=== PATIENT | female | born 1945 | race Caucasian/White ===

== ENCOUNTER 2022-01-26 13:51 | Observation (INO) | payer MEDICARE, SELFPAY ==
[2022-01-26] VITALS (7 sets, daily range): BP systolic 116–170; BP diastolic 59–87; PULSE 66–81; RESP 12–20; TEMP 36.3–37.4; O2SAT 90–100
--- NOTE | ~2022-01-26 | XR_ITS ---
EXAMINATION: XR thoracic spine 3V DATE: 01/26/2022 14:42 INDICATION: Back pain. TECHNIQUE: 3 views of thoracic spine were obtained. COMPARISON: Chest 2 views 11/29/2012 FINDINGS: There is 14 degrees dextroscoliosis of thoracic spine. There is kyphosis of thoracic spine. Vertebral body heights are normal. There is mild to moderately decreased disc height at most levels. There are endplate osteophytes at all levels. There are changes of anterior fusion procedure in cerv ical spine. IMPRESSION: 1. Moderate thoracic spondylosis. 2. Thoracic dextroscoliosis and kyphosis. Reviewed, dictated and finalized at location A. LES ASSEMBLER
--- NOTE | ~2022-01-26 | CT_ITS ---
EXAMINATION: CTA chest abdomen pelvis DATE: 01/26/2022 15:34 INDICATION: Epigastric abdominal pain. Syncope. Aortic aneurysm. TECHNIQUE: Computed tomography (CT) of the chest, abdomen, and pelvis was performed with 100 CC Omnip aque 350 intravenous contrast. Automated exposure control and iterative reconstruction technique were employed. Exam dose: 421.15 mGy-cm total exam DLP. COMPARISON: 01/26/2022 portable AP chest 08/07/2016 CT abdomen pelvis FINDINGS: CHEST CT: There is discoid atelectasis and/or scarring at the middle lobe and lingula and mild infiltrate or at electasis in the lower lobes. Moderately prominent emphysematous changes of the lungs. There is old pulmonary granulomatous disease. Normal heart size. Mitral annulus calcification. There is some calcification of the aortic valve. The re is coronary artery calcification. Is aortic and great vessel calcification. No thoracic aortic ane urysm or dissection is detected. No hilar or mediastinal mass lesion or lymphadenopathy. ABDOMEN/PELVIS CT: There is diffuse hepatic steatosis. No hepatic space-occupying mass lesion is evident. Status post ch olecystectomy. No bile duct or unusual dilatation is suggested. No pancreatic mass lesion or calcific ation or pancreatic duct dilatation is noted. Adrenal glands are unremarkable. No renal mass lesion or urinary tract calculus or hydroureteronephrosis. There is a saccular abdominal aortic aneurysm measuring up to 5.2 cm length, up to [address], without evidence of aortic rupture. There is extensive calcification of the abdominal aorta and iliac arteries as well as some femoral ar denis calcification. No intraperitoneal or retroperitoneal or pelvic mass lesion or adenopathy or ascites. No evidence of appendicitis. No bowel obstruction. There is diverticulosis of the colon, primarily in the sigmoid and descending colon; no evidence of diverticulitis. The urinary bladder is unremarkable. Uterus is likely surgically absent. Status post anterior cervical spine surgical fusion. Severe osteoarthritic change at the glenohumeral joints. Bilateral hip osteoarthritis. No recent fracture or bone destruction or suspicious osteolytic or osteoblastic lesions are noted. Prominent degenerative changes apophyseal joints with associated grade 1 anterolisthesis at L5-S1. Moderate degenerative disc disease with mild retrolisthesis at L1-2, L2-3. IMPRESSION: Discoid atelectasis and/or scarring at the middle lobe and lingula and mild infiltrate o r atelectasis in the lower lobes Emphysema Old pulmonary granulomatous disease Aortic valve calcification Extensive atherosclerotic calcification of thoracic aorta, abdominal aorta, iliac arteries 4 cm diameter saccular infrarenal abdominal aortic aneurysm Diverticulosis of left colon; no evidence of diverticulitis Reviewed, dictated and finalized at Location A. Reviewed, dictated and finalized at location A. ER TRAWL LINE IMPRESSION: Discoid atelectasis and/or scarring at the middle lobe and lingula and mild infiltrate or atelectasis in the lower lobes Emphysema Old pulmonary granulomatous disease Aortic valve calcification Extensive atherosclerotic calcification of thoracic aorta, abdominal aorta, gerri ac arteries 4 cm diameter saccular infrarenal abdominal aortic aneurysm Diverticulosis of left colon; no evidence of diverticulitis
--- NOTE | ~2022-01-26 | XR_ITS ---
EXAMINATION: XR lumbar spine 2-3V DATE: 01/26/2022 14:42 INDICATION: Back pain. TECHNIQUE: 3 views of lumbar spine were obtained. COMPARISON: CT abdomen and pelvis 08/07/2016 FINDINGS: There is 3 mm retrolisthesis of L1 on L2 and L2 on L3 and 5 mm anterolisthesis of L5 on S1. Vertebral body heights are normal. There is moderately decreased disc height at L1-L2 and mildly dec reased disc height at L2-L3 and L5-S1. There is multilevel facet joint osteoarthritis, severe at mult iple levels. Surgical clips in the right upper quadrant are likely from cholecystectomy. There is an abdominal aortic aneurysm measuring greater than 4 cm based on the calcification pattern. IMPRESSION: 1. Worsened abdominal aortic aneurysm. CTA of the abdomen and pelvis is recommended. 2. Moderate lumbar spondylosis. Reviewed, dictated and finalized at location A. K CLEANER IMPRESSION: 1. Worsened abdominal aortic aneurysm. CTA of the abdomen and pelvis is recomme nded. 2. Moderate lumbar spondylosis.
--- NOTE | ~2022-01-26 | XR_ITS ---
XR chest 1V portable DATE: 01/26/2022 14:27 INDICATION: Syncope TECHNIQUE: Portable upright AP chest on 01/26/2022 at 1425 hours COMPARISON: 08/07/2016 portable AP chest at 1620 hours FINDINGS: There are bilateral lower lung patchy infiltrates. Moderate bilateral hyperinflation. No pleural effusion or pulmonary vascular congestion or pneumothorax. Heart size is within normal range. Is aortic calcification. Diffuse osteopenia. Status post anterior surgical cervical spine fusion IMPRESSION: Patchy bilateral lower lung infiltrates; diffusion diagnosis includes bilateral pneumonia versus aspiration pneumonitis Reviewed, dictated and finalized at location A. O REGULATOR INSPECTOR IMPRESSION: Patchy bilateral lower lung infiltrates; diffusion diagnosis includ es bilateral pneumonia versus aspiration pneumonitis
--- NOTE | ~2022-01-26 | US_ITS ---
US venous doppler [facility] DATE: 01/26/2022 21:57 INDICATION: Elevated d-dimer TECHNIQUE: Real-time and color flow imaging and Doppler analysis of the deep veins of both lower extr emities COMPARISON: None FINDINGS: There is complete thrombosis of the left peroneal veins. Otherwise there is spontaneous and phasic flow, normal augmentation and color flow signal and normal compression of the deep veins of both lower extremities. The greater saphenous veins are patent bilaterally. IMPRESSION: Deep venous thrombosis of the left peroneal veins Reviewed, dictated and finalized at Location A. Reviewed, dictated and finalized at location A. R AUTOMATIC
--- NOTE | ~2022-01-26 | US_ITS ---
EXAMINATION: US carotid duplex BI DATE: 01/26/2022 21:57 INDICATION: Syncopal episode TECHNIQUE: Grayscale, color Doppler, and pulsed Doppler images of the cervical carotid arteries were obtained. The degree of vessel stenosis is placed in one of the following categories: normal, <50%, 5 0-69%, >=70% but less than near-occlusion, near-occlusion, or total occlusion. Note that percent sten osis relative to normal distal artery lumen diameter is indirectly measured from velocity measurement s as described by Chris, et al. Radiology 2003; 229:340-346. COMPARISON: 01/26/2022 CT brain FINDINGS: RIGHT: The right common carotid artery (CCA) peak systolic velocity (PSV) is 87.4 cm/s. The right internal c arotid artery (ICA) PSV is 90.7 cm/s. The right ICA end-diastolic velocity (EDV) is 24.8 cm/s. The ri ght ICA/CCA PSV ratio is 1.0. Grayscale and color Doppler images yield an estimate of less than 50% d iameter reduction from plaque in the ICA. The external carotid artery (ECA) PSV is 80.8 cm/s. There i s antegrade flow in the right vertebral artery. LEFT: The left CCA PSV is 70.3 cm/s. The left ICA PSV is 64.2 cm/s. The left ICA EDV is 18.0 cm/s. The left ICA/CCA PSV ratio is 0.9. Grayscale and color Doppler images yield an estimate of less than 50% diam eter reduction from plaque in the ICA. The ECA PSV is 140.4 cm/s. There is antegrade flow in the left vertebral artery. IMPRESSION: 1. Less than 50% stenosis in the right internal carotid artery. 2. Less than 50% stenosis in the left internal carotid artery. Reviewed, dictated and finalized at Location A. Reviewed, dictated and finalized at location A. RDER HELPER SEISMOGRAPH
--- NOTE | ~2022-01-26 | CT_ITS ---
EXAMINATION: CT brain wo con DATE: 01/26/2022 14:36 INDICATION: Syncopal episode. Generalized weakness. TECHNIQUE: Computed tomography (CT) of the head was performed without intravenous contrast. The mA wa s adjusted according to patient size. Iterative reconstruction technique was employed. Exam dose: 60 5.33 mGy-cm total exam DLP. COMPARISON: 01/02/2009 CT brain FINDINGS: There are prominent bilateral carotid siphon and supraclinoid internal carotid artery calci fications the right anterior middle cerebral artery as well as basilar and right vertebral artery edilia cifications are noted. There is nonspecific diminished attenuation of the cerebral white matter, likely due to chronic small vessel ischemic changes. No intracranial mass lesion or hemorrhage or cerebrovascular accident is detected. No midline shift o r mass effect. No subdural or epidural hematoma. No fracture or bone destruction of the cranial vault. Included paranasal sinuses and the mastoid air cells are unremarkable. IMPRESSION: Cerebral atherosclerosis and chronic small vessel ischemic changes of the cerebral white matter No acute intracranial finding Reviewed, dictated and finalized at Location A. Reviewed, dictated and finalized at location A. IFIED GENETIC COUNSELOR
[2022-01-26 13:59] LABS: Glucose Point of Care 132 mg/dl (65-105)
--- NOTE | 2022-01-26 14:04 | ECG_ITS ---
Measurements Intervals [place] Rate: 67 P: -4 ND: 176 QRS: 12 QRSD: 133 T: 27 QT: 408 QTc: 431 Interpretive Statements SINUS RHYTHM INTRAVENTRICULAR CONDUCTION DELAY [130+ ms QRS DURATION] NO PREVIOUS ECG AVAILABLE FOR COMPARISON Electronically Signed On 01-26-2022 15:36:[address] MAINTENANCE SUPERVISOR by Arlene Arredondo M.D.
--- NOTE | 2022-01-26 14:20 | ED.SYNCOPE ---
HPI - Syncope General Chief Complaint: Syncope <Margarita Cantu PA-C - Last Filed: 01/26/22 17:38> Stated Complaint: not feeling well <JOHNATHAN Cummings Last Filed: 01/26/22 17:38> Time Seen by Provider: 01/26/22 14:00 <Margarita Cantu PA-C - Last Filed: 01/26/22 17:38> Source: patient and family <JOHNATHAN Cummings Last Filed: 01/26/22 17:38> Mode of arrival: EMS <JOHNATHAN Cummings Last Filed: 01/26/22 17:38> Limitations: no limitations <JOHNATHAN Cummings Last Filed: 01/26/22 17:38> History of Present Illness HPI narrative: This is a 76 year old female that presents to the ER for syncopal episode today. Family report she has been having a lot of pain in her back and shoulders the last couple of days due to her arthritis. No recent injuries or falls. Report she was seated today and looked like she was gasping for air. She passed out. They caught her before falling to the floor. They were able to arouse her via sternal rub. She is now alert and oriented. She reports feeling dizzy before passing out. Reports when she came back to she vomited. Reports some epigastric pain currently. She does have a productive cough. Has history of COPD. Is still a smoker. Does not usually use oxygen. Denies fever, chest pain, shortness of breath, dysuria, or lower extremity edema. <Margarita Cantu PA-C - Last Filed: 01/26/22 17:38> Related Data Allergies/Adverse Reactions: Allergies Allergy/AdvReac Type Severity Reaction Status Date / Time diclofenac AdvReac Unknown GI upset Verified 04/14/21 12:04 levofloxacin [From Levaquin] AdvReac Unknown nausea, Verified 04/14/21 12:04 mouth sores codeine AdvReac Nausea and Verified 01/26/22 14:11 Vomiting <JOHNATHAN Cummings Last Filed: 01/26/22 17:38> Review of Systems Review of Systems: CONSTITUTIONAL: Denies fever EYES: Denies redness, or discharge. ENT: Denies rhinorrhea, congestion, sore throat CARDIOVASCULAR: Denies chest pain, palpitations, or edema. RESPIRATORY: Reports cough. Denies dyspnea. GASTROINTESTINAL: Reports abdominal pain, nausea, vomiting GENITOURINARY: Denies dysuria or hematuria. MUSCULOSKELETAL: Reports back pain, joint pain, and myalgia. NEUROLOGIC: Reports generalized weakness. PSYCHIATRIC: Denies anxiety or depression. <Margarita Cantu PA-C - Last Filed: 01/26/22 17:38> All systems reviewed & are unremarkable except as noted in HPI and below <Margarita Cantu PA-C - Last Filed: 01/26/22 17:38> [facility] Past Medical History Medical History: Medical History Abnormal colonoscopy 07/24 Polyp Chronic obstructive pulmonary disease, unspecified Gastro-esophageal reflux disease without esophagitis Mixed hyperlipidemia Nicotine dependence, cigarettes, with other nicotine-induced disorders Other chronic pain Paroxysmal atrial fibrillation Type 2 diabetes mellitus without complications <Margarita Cantu PA-C - Last Filed: 01/26/22 17:38> Surgical History Surgical History: Surgical History H/O cervical discectomy (~1997) History of hysterectomy (~1972) Hx of cholecystectomy (~1989) Hx of tonsillectomy (~1948) <Margarita Cantu PA-C - Last Filed: 01/26/22 17:38> Family History Family History: Family History Mother Breast cancer Sibling Breast cancer Heart disease Grandparent Carcinoma of colon Other Colon polyp Diabetes mellitus <Margarita Cantu PA-C - Last Filed: 01/26/22 17:38> Social History Social History: Social History (Updated 01/26/22 @ 16:53 by Kelsie Lau NP) Social History: 1ppd. family lives with diabled Smoking status: Current every day smoker Tobacco type: cigarettes Second hand tobacco smoke exposure: Yes Alcohol intake: never Substance use: never Subs
--- NOTE | 2022-01-26 14:26 | ED.SYNCOPE ---
HPI - Syncope General Chief Complaint: Syncope Stated Complaint: not feeling well Time Seen by Provider: 01/26/22 14:00 Source: patient and family Mode of arrival: EMS Limitations: no limitations Related Data Allergies Allergy/AdvReac Type Severity Reaction Status Date / Time diclofenac AdvReac Unknown GI upset Verified 04/14/21 12:04 levofloxacin [From Levaquin] AdvReac Unknown nausea, Verified 04/14/21 12:04 mouth sores codeine AdvReac Nausea and Verified 01/26/22 14:11 Vomiting PMFSH Past Medical History Medical History (Updated 01/26/22 @ 14:35 by Margarita Cantu PA-C) Abnormal colonoscopy 07/24 Polyp Chronic obstructive pulmonary disease, unspecified Gastro-esophageal reflux disease without esophagitis Mixed hyperlipidemia Nicotine dependence, cigarettes, with other nicotine-induced disorders Other chronic pain Paroxysmal atrial fibrillation Type 2 diabetes mellitus without complications Surgical History Surgical History (Updated 04/14/21 @ 12:02 by Luzma Dan) H/O cervical discectomy (~1997) History of hysterectomy (~1972) Hx of cholecystectomy (~1989) Hx of tonsillectomy (~1948) Family History Family History (Updated 04/16/21 @ 10:03 by Yajaira Smith MA) Mother Breast cancer Sibling Breast cancer Heart disease Grandparent Carcinoma of colon Other Colon polyp Diabetes mellitus Social History Social History (Updated 04/16/21 @ 10:04 by Yajaira Smith MA) Smoking status: Current every day smoker Tobacco type: cigarettes Second hand tobacco smoke exposure: Yes Alcohol intake: never Substance use: never Substance use type: does not use Gender identity (if verbalized by the patient): Female Sexual Orientation (if Verbalized by the Patient): Straight or Heterosexual Spiritual care concerns: No Agree to blood products: Yes Course Vital Signs Vital signs: Vital Signs Temperature 36.3 C L 01/26/22 13:52 Pulse Rate 66 01/26/22 13:52 Respiratory Rate 12 01/26/22 13:52 Blood Pressure 128/59 L 01/26/22 13:52 Pulse Oximetry 97 01/26/22 13:52 Oxygen Delivery Room Air 01/26/22 13:52 Temperature 36.3 C L 01/26/22 13:52 Pulse Rate 67 01/26/22 14:01 Respiratory Rate 12 01/26/22 13:52 Blood Pressure 128/59 L 01/26/22 13:52 Pulse Oximetry 90 01/26/22 14:01 Oxygen Delivery Room Air 01/26/22 14:01 MDM - Syncope Lab Data 01/26/22 14:19 01/26/22 14:19 Labs: Lab Results 01/26/22 01/26/22 01/26/22 Range/Units 13:57 14:19 14:19 WBC 4.9 (4.5-10.0) K/mm3 RBC 4.79 (4.2-5.4) M/mm3 Hgb 15.3 H (12.0-15.0) g/dL Hct 45.3 (37.0-47.0) % MCV 94.6 (80-100) fl MCH 31.9 (26-34) pg MCHC 33.8 (32-36) g/dl RDW 13.2 (11.5-14.5) % Plt Count 194 (150-375) k/mm3 MPV 9.9 (7.4-10.4) fl Immature Gran % (Auto) 0.4 (0-0.5) % Neut % (Auto) 63.3 (45.5-73.1) % Lymph % (Auto) 24.8 (18.3-44.2) % [place] % (Auto) 10.3 H (2.6-8.5) % Eos % (Auto) 0.4 (0-4.4) % Baso % (Auto) 0.8 (0.2-1.2) % Lymph # (Auto) 1.21 (0.9-3.2) K/mm3 [place] # (Auto) 0.5 (0.1-0.6) K/mm3 Eos # (Auto) 0.0 (0-0.3) K/mm3 Baso # (Auto) 0.0 (0.0-0.1) K/mm3 Abs Immat Gran (auto) 0.02 (0.00-0.031) K/mm3 Absolute Neuts (auto) 3.1 (1.3-6.7) K/mm3 Absolute Nucleated RBC 0.0 (0.0-0.012) K/mm3 Nucleated RBC % 0.0 (0.0-0.2) % Sodium Pending Potassium Pending Chloride Pending Carbon Dioxide Pending Anion Gap Pending BUN Pending Creatinine Pending Estim Creat Clear Calc Pending Estimated GFR Pending Glucose Pending POC Capillary Glucose 132 H (65-105) mg/dl Calcium Pending Total Bilirubin Pending AST Pending ALT Pending Alkaline Phosphatase Pending Troponin I Total Protein Pending Albumin Pending Lipase 01/26/22 01/26/22 Rang
[2022-01-26 14:31] LABS: Basophils Percent Auto 0.8 % (0.2-1.2); Eosinophils Percent Auto 0.4 % (0-4.4); Hematocrit 45.3 % (37.0-47.0); Hemoglobin 15.3 g/dL (12.0-15.0); Immature Granulocyte Absolute 0.02 K/mm3 (0.00-0.031); Immature Granulocyte Percent A 0.4 % (0-0.5); Lymphocytes Absolute Auto 1.21 K/mm3 (0.9-3.2); Lymphocytes Percent Auto 24.8 % (18.3-44.2); Mean Corpuscular HGB Conc 33.8 g/dl (32-36); Mean Corpuscular Hemoglobin 31.9 pg (26-34); Mean Corpuscular Volume 94.6 fl (80-100); Mean Platelet Volume 9.9 fl (7.4-10.4); Monocytes Absolute Auto 0.5 K/mm3 (0.1-0.6); Monocytes Percent Auto 10.3 % (2.6-8.5); Neutrophils Absolute Auto 3.1 K/mm3 (1.3-6.7); Neutrophils Percent Auto 63.3 % (45.5-73.1); Platelet Count Result 194 k/mm3 (150-375); Red Blood Count 4.79 M/mm3 (4.2-5.4); Red Cell Distribution Width 13.2 % (11.5-14.5); White Blood Count 4.9 K/mm3 (4.5-10.0)
[2022-01-26 14:44] LABS: Lipase 71 U/L (23-300)
[2022-01-26] MEDS: SODIUM CHLORIDE 0.9% IV 500 ML 999 ML IV CONT ×2 (14:52→18:49)
[2022-01-26] MEDS: PANTOPRAZOLE SODIUM IV 40 MG VIAL IV PUSH (14:52)
[2022-01-26 14:55] LABS: Alanine Aminotransferase 31 U/L (6-35); Albumin Level 3.8 g/dL (3.5-5.1); Alkaline Phosphatase 68 U/L (38-126); Anion Gap 5 mmol/L (8-16); Aspartate Amino Transferase 63 U/L (14-36); Bilirubin,Total 0.3 mg/dL (0.2-1.3); Blood Urea Nitrogen 8 mg/dL (7-17); Calcium 8.3 mg/dL (8.4-10.2); Carbon Dioxide 29 mmol/L (22-30); Chloride 93 mmol/L (98-107); Estimated Glomerular Filt Rate > 60; Glucose 111 mg/dL (65-110); Potassium 3.4 mmol/L (3.4-5.0); Sodium 127 mmol/L (137-145)
[2022-01-26 14:56] LABS: Troponin I < 0.012 ng/mL (0.000-0.034)
[2022-01-26 15:05] LABS: Lactic Acid Reflex 1.2 mmol/L (0.7-2.0)
[2022-01-26 15:08] LABS: Prothrombin Time 13.2 Seconds (11.1-14.7)
[2022-01-26 15:09] LABS: Partial Thromboplastin Time 31.2 SECONDS (22.3-36.8)
[2022-01-26 15:15] LABS: NT Pro B Type Natriuretic Pept 305 pg/mL (5-100)
[2022-01-26 15:27] LABS: Ethanol < 10 mg/dL (<10)
[2022-01-26 15:30] LABS: D Dimer 2.69 ug/mL (<0.48)
[2022-01-26 15:33] LABS: Influenza A QL RT-PCR Negative (Negative); Influenza B QL RT-PCR Negative (Negative); SARS-CoV-2 RNA PCR Positive
[2022-01-26 16:28] LABS: Add Urine Microscopic? YES; Appearance Urine Clear (Clear); Bilirubin Urine Negative (Negative); Blood Urine Trace-Intact (Negative); Color Urine Light Yellow (Yellow); Glucose Urine UA Negative (Negative); Ketones Urine Negative (Negative); Leukocyte Esterase Ur Negative LEU/UL (Negative); Nitrate Urine Negative (Negative); Protein Urine Negative (Negative); Urobilinogen Urine 0.2 mg/dL (<2.0)
[2022-01-26 16:40] LABS: Bacteria Urine Trace /hpf; Mucus Urine Rare /lpf; RBC Urine 0-2 /hpf (0-2); Squamous Epithelial Cell Urine Occasional /hpf (Few); WBC Urine 0-3 /hpf
[2022-01-26 16:46] LABS: Barbiturate Screen Urine Negative (Negative); Benzodiazepines Screen Urine Negative (Negative)
[2022-01-26 16:49] LABS: Cannabinoid Screen Urine Negative (Negative); Cocaine Screen Urine Negative (Negative); Methadone Screen Urine Negative (Negative); Opiate Screen Urine Positive (Negative); Phencyclidine Screen Urine Negative (Negative)
--- NOTE | 2022-01-26 16:51 | PM.IMHP ---
H&P: HPI History of Present Illness Date/Time: 01/26/22 16:51 Chief Complaint: Syncope Narrative: This is a 76-year-old female patient who has not been feeling very well. The patient stated that she has had some vasovagal experience in the past and has had a syncopal episode in the past. Today the patient was having a lot of pain in her back and her shoulders due to the arthritis. She just felt more achy than normal. Today she was seated and looks like she was gasping for air and she passed out. Her family caught her before falling to the ground. She was aroused per sternal rub. She is alert orientated answering questions although she is very hard of hearing. She has a productive cough. She has a history of COPD and she still smokes. She does not use oxygen at home. The patient's oxygen level dropped down 82. She was placed on oxygen at 2 L per nasal cannula. Her D-dimer was elevated to 2.69 sodium 127. The patient was positive for opioids and positive for COVID. Chest abdomen pelvis CTA was read as emphysema old pulmonary granulomatosis disease aortic valve calcification. Extensive aortic sclerotic calcifications of thoracic aorta, abdominal aorta, iliac arteries. 4 cm diameter saccular infrarenal abdominal aortic aneurysm. Diverticulosis of the left colon no evidence of diverticulitis. Patient was started on remdesivir and Decadron. She was also given pantoprazole and IV fluids. The patient is being admitted to observation status on the date of service of 01/26/2022. Review of Systems Review of Systems: All systems reviewed & are unremarkable except as noted in HPI and below Constitutional: Constitutional: Reports as per HPI and Reports no additional constitutional complaints Eyes: Eyes: Reports as per HPI and Reports no additional eye complaints ENT: Reports system reviewed and no additional complaints, except as documented and Reports Normal hearing present Cardiovascular: Cardiovascular: Reports no additional cardiovascular complaints Respiratory: Respiratory: Reports no additional respiratory complaints and Reports no additional respiratory complaints Gastrointestinal: Gastrointestinal: Reports as per HPI and Reports no additional gastrointestinal complaints Musculoskeletal: Musculoskeletal: Reports no additional musculoskeletal complaints Integumentary/Breasts: Skin/Breast: Reports system reviewed and no additional complaints, except as docu and Reports as per HPI Neurologic: Reports system reviewed and no additional complaints, except as documented, Reports as per HPI and Reports Normal hearing present Psychiatric: Psychiatric: Reports no additional psychiatric complaints and Reports as per HPI Endocrine: Endocrine: Reports no additional endocrine complaints Hematologic/Lymphatic: Hematologic/Lymphatic: Reports no additional hematologic/lymphatic complaints Allergic/Immunologic: Allergic/Immunologic: Reports no additional allergic/immunologic complaints [facility] Past Medical History Medical History (Updated 01/26/22 @ 20:37 by Kelsie Lau NP) Abnormal colonoscopy 07/24 Polyp Chronic obstructive pulmonary disease, unspecified DM2 (diabetes mellitus, type 2) Gastro-esophageal reflux disease without esophagitis Hyperlipidemia Mixed hyperlipidemia Nicotine dependence, cigarettes, with other nicotine-induced disorders Other chronic pain Paroxysmal atrial fibrillation Type 2 diabetes mellitus without complications Surgical History Surgical History H/O cervical discectomy (~1997) History of hysterectomy (~1972) Hx of cholecystectomy (~1989) Hx of tonsillectomy (~1948) Family History Family History Mother Breast cancer Sibling Breast cancer Heart disease Grandparent Carcinoma of colon Other Colon polyp Diabetes mellitus Social History Social History (Updated 01/26/22 @ 20:2
[2022-01-26 16:53] LABS: Amphetamine Screen Urine Negative (Negative)
[2022-01-26] MEDS: REMDESIVIR 200 MG/NS 250 ML 200 MG/250 ML BAG 250 MG IVPB (17:47)
--- NOTE | 2022-01-26 19:22 | PC.NURSE ---
Patient report received from ABDON Burns. All questions answered and care of patient assumed.
[2022-01-26 21:38] LABS: Glucose Point of Care 178 mg/dl (65-105)
--- NOTE | 2022-01-26 22:19 | ADMGEN ---
This patient, Remedios Mariscal, was admitted to [facility] Surg Room 301-01 at 2044. Patient/family oriented to hospital policies and general routines including ID bracelet, bed and alarms, visiting hours, pain management, procedures, bathroom and other care routines, personal items, smoking policy, room service/diet, and visiting hours. Information on how to activate the Rapid Response Team has been discussed. Patient/Family are encouraged to report perceived risks to care and to ask questions if they do not understand what they are told or what they should do.
[2022-01-26 22:22] LABS: Hemoglobin A1C 5.7 % (<5.7)
[2022-01-26 22:46] LABS: Anion Gap 5 mmol/L (8-16); Blood Urea Nitrogen 8 mg/dL (7-17); Calcium 8.4 mg/dL (8.4-10.2); Carbon Dioxide 25 mmol/L (22-30); Chloride 104 mmol/L (98-107); Estimated CRCL calculation 61 ml/min; Estimated Glomerular Filt Rate > 60; Glucose 196 mg/dL (65-110); Sodium 134 mmol/L (137-145)
[2022-01-27] VITALS (13 sets, daily range): BP systolic 100–148; BP diastolic 50–71; PULSE 49–80; RESP 16–20; TEMP 35.7–36.6; O2SAT 97–100; BMI 22.5
--- NOTE | 2022-01-27 | ECHO_ITS ---
Patient Info Name: Remedios Mariscal Age: 76 years : 1945 Gender: Female Ht: 62 in Wt: 123 lbs BSA: 1.57 m2 HR: 64 bpm BP: 144 / 54 mmHg Heart Rhythm: Sinus Rhythm Technical Quality: Fair Exam Date: 01/27/2022 2:59 PM Exam Location: [facility] Patient Status: Outpatient Admit Date: 01/26/2022 Staff Ordering Physician: Kelsie Lau NP Pillar Worker: Nerissa Mancilla RDCS Attending Provider: Karel Downs MD Referring Physician: Judi CHAPA; Exam Type: CA echo doppler color flow Study Info Indications - syncopal episode Complete two-dimensional, color flow and Doppler transthoracic echocardiogram is performed. Summary 1. Complete two-dimensional, color flow and Doppler transthoracic echocardiogram is performed. 2. Left ventricular chamber dimension is normal. 3. Left ventricular systolic function is normal, estimated at 65-70%. 4. The left ventricular diastolic function is grade I diastolic dysfunction. 5. E/e' 17 is elevated. 6. There is moderate aortic valve sclerosis. 7. The mitral valve has severely calcified annulus. 8. No pulmonary hypertension, estimated pulmonary arterial systolic pressure is 24 mmHg. Left Ventricle E/e' 17 is elevated. Left ventricular chamber dimension is normal. Left ventricular systolic function is normal, estimated at 65-70%. The left ventricular diastolic function is grade I diastolic dysfunction. Right Ventricle Right ventricular systolic function is normal and with normal TAPSE 2.3 cm. Right ventricular chamber dimension is normal. Left Atria Left atrial chamber dimension is normal. Right Atria Right atrial chamber dimension is normal. Aortic Valve The aortic valve is trileaflet. There is moderate aortic valve sclerosis. There is no aortic valve stenosis. There is no aortic valve regurgitation. Pulmonic Valve There is no pulmonic regurgitation. Mitral Valve The mitral valve has severely calcified annulus. There is no mitral valve stenosis. There is no mitral valve regurgitation. Tricuspid Valve There is no tricuspid valve regurgitation. No pulmonary hypertension, estimated pulmonary arterial systolic pressure is 24 mmHg. Pericardium/Pleural There is no pericardial effusion. Inferior Vena Cava Normal inferior vena cava with >50% collapse upon inspiration consistent with normal right atrial pressure, 5 mmHg. Aorta The aortic root size at the sinus of Valsalva is normal. Left Ventricular Outflow Tract Name Value Normal LVOT 2D LVOT Diameter 2.0 cm LVOT Doppler LVOT Peak Gradient 4 mmHg LVOT Mean Gradient 2 mmHg LVOT VTI 23 cm LVOT VTI/AV VTI Ratio 0.7 LVOT Stroke Volume 68 ml LVOT CO 3.8 l/min LVOT CI 2.4 l/min/m2 Pulmonic Valve Name Value Normal
[2022-01-27 02:55] LABS: Sodium Urine Random 89 meq/L
[2022-01-27 07:18] LABS: Lactic Acid Reflex 0.8 mmol/L (0.7-2.0)
[2022-01-27 07:19] LABS: Alanine Aminotransferase 28 U/L (6-35); Albumin Level 3.5 g/dL (3.5-5.1); Alkaline Phosphatase 62 U/L (38-126); Anion Gap 5 mmol/L (8-16); Aspartate Amino Transferase 41 U/L (14-36); Bilirubin,Total 0.2 mg/dL (0.2-1.3); Blood Urea Nitrogen 10 mg/dL (7-17); Calcium 8.5 mg/dL (8.4-10.2); Carbon Dioxide 26 mmol/L (22-30); Chloride 102 mmol/L (98-107); Estimated CRCL calculation 52 ml/min; Estimated Glomerular Filt Rate > 60; Glucose 118 mg/dL (65-110); Magnesium 1.7 mg/dL (1.6-2.3); Potassium 3.5 mmol/L (3.4-5.0); Sodium 133 mmol/L (137-145)
[2022-01-27 07:22] LABS: Basophils Percent Auto 0.2 % (0.2-1.2); Hematocrit 44.6 % (37.0-47.0); Hemoglobin 15.1 g/dL (12.0-15.0); Immature Granulocyte Absolute 0.01 K/mm3 (0.00-0.031); Immature Granulocyte Percent A 0.2 % (0-0.5); Lymphocytes Absolute Auto 1.27 K/mm3 (0.9-3.2); Lymphocytes Percent Auto 24.2 % (18.3-44.2); Mean Corpuscular HGB Conc 33.9 g/dl (32-36); Mean Corpuscular Hemoglobin 32.1 pg (26-34); Mean Corpuscular Volume 94.7 fl (80-100); Mean Platelet Volume 10.4 fl (7.4-10.4); Monocytes Absolute Auto 0.5 K/mm3 (0.1-0.6); Monocytes Percent Auto 10.1 % (2.6-8.5); Neutrophils Absolute Auto 3.4 K/mm3 (1.3-6.7); Neutrophils Percent Auto 65.3 % (45.5-73.1); Platelet Count Result 208 k/mm3 (150-375); Red Blood Count 4.71 M/mm3 (4.2-5.4); Red Cell Distribution Width 13.2 % (11.5-14.5); White Blood Count 5.3 K/mm3 (4.5-10.0)
[2022-01-27 08:00] LABS: Thyroid Stimulating Hormone Reflex 0.714 uIU/mL (0.465-4.68)
[2022-01-27] MEDS: DIGOXIN 250 MCG TABLET PO (08:43)
[2022-01-27] MEDS: ASPIRIN 81 MG ENTERIC TABLET PO (08:43)
[2022-01-27] MEDS: ATORVASTATIN 20 MG TABLET BY MOUTH (08:43)
[2022-01-27] MEDS: AZITHROMYCIN 250 MG TABLET PO (08:43)
[2022-01-27] MEDS: FENOFIBRATE 160 MG TABLET PO (08:44)
[2022-01-27] MEDS: ENOXAPARIN 40 MG/0.4 ML SYRINGE SUB-Q (08:45)
[2022-01-27 08:55] LABS: Glucose Point of Care 117 mg/dl (65-105)
--- NOTE | 2022-01-27 10:03 | PM.IMPN ---
Progress Note: A&P Assessment and Plan (1) Pneumonia due to COVID-19 virus: Code(s): U07.1 - COVID-19; J12.82 - Pneumonia due to coronavirus disease 2018 Status: Acute Assessment and Plan: -continue with Decadron and remdesivir. -continue with albuterol -Robitussin p.r.n. -contact and droplet isolation 01/27: Does not appear to be improving much, no COPD medications at baseline, pulmonology consultation pending (2) Left leg DVT: Code(s): I82.402 - Acute embolism and thrombosis of unspecified deep veins of left lower extremity Status: Acute Assessment and Plan: Started on Eliquis today, likely secondary to history of smoking as well as COVID positive (3) Syncope: Qualifiers: Syncope type: unspecified Qualified Code(s): R55 - Syncope and collapse Code(s): R55 - Syncope and collapse Status: Acute Assessment and Plan: Appears resolved at this time, monitor For echo showed an EF of 65-70% with grade 1 diastolic dysfunction, moderate aortic valve sclerosis and no pulmonary hypertension noted (4) Hyponatremia: Code(s): E87.1 - Hypo-osmolality and hyponatremia Status: Acute Assessment and Plan: Improving, continue to monitor (5) Aortic aneurysm: Qualifiers: Abdominal aorta location: infrarenal aorta Aortic location: abdominal aorta Presence of rupture: without rupture Qualified Code(s): I71.43 - Infrarenal abdominal aortic aneurysm, without rupture Code(s): I71.9 - Aortic aneurysm of unspecified site, without rupture Status: Acute Assessment and Plan: Follow-up outpatient, stable (6) Type 2 diabetes mellitus without complications: Code(s): E11.9 - Type 2 diabetes mellitus without complications Status: Acute Assessment and Plan: A1c 5.7, continue Accu-Cheks and sliding scale, monitor, controlled (7) Hyperlipidemia: Code(s): E78.5 - Hyperlipidemia, unspecified Status: Acute Assessment and Plan: Continue Lipitor Plan DVT prophylaxis with Eliquis GI prophylaxis not indicated Code status full code Subjective Date/time seen: 01/27/22 10:03 Interval history: No overnight events noted. No chest pain or shortness of breath. No nausea, vomiting or diarrhea. No fevers or chills. Patient states she feels better today than yesterday. She did not know she had a DVT in her left leg. She also is asking about her aneurysm and this is something to be worried about. She was wondering why she needed a blood thinner she was already on aspirin. She states her generalized joint pain seems significantly improved. She states she has significant abdominal distention every night when she lays down in bed seems to resolve by morning. She is requesting to see a GI specialist for this. She is also requesting to get her baclofen and Allen more regularly and her home MiraLax and simethicone q.h.s.. Review of Systems Review of Systems: 12 point review of systems was assessed and was negative except as noted in the HPI Exam Narrative: General: No acute distress, alert and oriented per baseline, stable on 3 L nasal cannula HEENT: Atraumatic, normocephalic, mucous membranes moist CV: Regular rate and rhythm, S1, S2 Lungs: Diminished throughout, scattered fine crackles noted Abdomen: Soft, nontender, nondistended Extremities: Normal to inspection Skin: No rashes noted, no lesions or wounds seen Psych: Euthymic, normal affect Objective Data Vital Signs Vital Signs: Vital Signs - 24 hr 01/26/22 13:52 01/26/22 14:01 01/26/22 14:01 Temperature 97.3 F L Pulse Rate 66 67 Respiratory Rate 12 Blood Pressure 128/59 L Pulse Oximetry 97 90 Oxygen Delivery Room Air Room Air Oxygen Flow Rate 01/26/22 16:27 01/26/22 19:00 01/26/22 19:39 Temperature Pulse Rate 78 73 81 Respiratory Rate 18 20 16 Blood Pressure 116/87 156/73 H 170/66 H Pulse Oximetry 1
[2022-01-27 10:21] LABS: Prothrombin Time 12.9 Seconds (11.1-14.7)
[2022-01-27 12:18] LABS: Glucose Point of Care 197 mg/dl (65-105)
[2022-01-27 17:39] LABS: Glucose Point of Care 186 mg/dl (65-105)
[2022-01-27] MEDS: HYDROcodone/acetaminophen (*CRX) 5-325 MG TABLET 1 TAB PO (21:02)
[2022-01-27] MEDS: BACLOFEN 10 MG TABLET PO (21:02)
[2022-01-27] MEDS: APIXABAN 5 MG TABLET 10 MG PO (21:02)
[2022-01-27] MEDS: REMDESIVIR 100 MG/NS 250 ML 100 MG/250 ML BAG 250 MG IVPB (21:03)
[2022-01-27] MEDS: polyethylene glycoL 3350 17 GM POWD.PACK PO (21:03)
[2022-01-28] VITALS (10 sets, daily range): BP systolic 114–132; BP diastolic 43–60; PULSE 47–66; RESP 16–20; TEMP 36.3–36.6; O2SAT 92–99
[2022-01-28 06:39] LABS: Basophils Percent Auto 0.2 % (0.2-1.2); Eosinophils Percent Auto 0.2 % (0-4.4); Hematocrit 40.9 % (37.0-47.0); Hemoglobin 13.6 g/dL (12.0-15.0); Immature Granulocyte Absolute 0.02 K/mm3 (0.00-0.031); Immature Granulocyte Percent A 0.3 % (0-0.5); Lymphocytes Absolute Auto 2.29 K/mm3 (0.9-3.2); Lymphocytes Percent Auto 35.2 % (18.3-44.2); Mean Corpuscular HGB Conc 33.3 g/dl (32-36); Mean Corpuscular Volume 96.2 fl (80-100); Monocytes Absolute Auto 0.6 K/mm3 (0.1-0.6); Monocytes Percent Auto 8.6 % (2.6-8.5); Neutrophils Absolute Auto 3.6 K/mm3 (1.3-6.7); Neutrophils Percent Auto 55.5 % (45.5-73.1); Platelet Count Result 196 k/mm3 (150-375); Red Blood Count 4.25 M/mm3 (4.2-5.4); Red Cell Distribution Width 13.2 % (11.5-14.5); White Blood Count 6.5 K/mm3 (4.5-10.0)
[2022-01-28 06:55] LABS: Alanine Aminotransferase 22 U/L (6-35); Albumin Level 3.3 g/dL (3.5-5.1); Alkaline Phosphatase 49 U/L (38-126); Anion Gap 5 mmol/L (8-16); Aspartate Amino Transferase 27 U/L (14-36); Bilirubin,Total 0.3 mg/dL (0.2-1.3); Blood Urea Nitrogen 16 mg/dL (7-17); Calcium 8.8 mg/dL (8.4-10.2); Carbon Dioxide 27 mmol/L (22-30); Chloride 101 mmol/L (98-107); Estimated CRCL calculation 45 ml/min; Estimated Glomerular Filt Rate > 60; Glucose 102 mg/dL (65-110); Potassium 3.7 mmol/L (3.4-5.0); Sodium 133 mmol/L (137-145)
[2022-01-28 07:34] LABS: Glucose Point of Care 158 mg/dl (65-105)
[2022-01-28 08:21] LABS: Glucose Point of Care 88 mg/dl (65-105)
[2022-01-28] MEDS: ATORVASTATIN 20 MG TABLET BY MOUTH (09:50)
[2022-01-28] MEDS: AZITHROMYCIN 250 MG TABLET PO (09:50)
[2022-01-28] MEDS: DIGOXIN 250 MCG TABLET PO (09:50)
[2022-01-28] MEDS: ASPIRIN 81 MG ENTERIC TABLET PO (09:50)
[2022-01-28] MEDS: FENOFIBRATE 160 MG TABLET PO (09:50)
[2022-01-28] MEDS: FLUTICASONE PROPIONATE 0.05% NA SPR 16 GM BTL (*BKC) 2 SPRAY NASAL (09:50)
[2022-01-28] MEDS: APIXABAN 5 MG TABLET 10 MG PO ×2 (09:50→14:08)
[2022-01-28 12:26] LABS: Glucose Point of Care 127 mg/dl (65-105)
--- NOTE | 2022-01-28 12:34 | PM.DS ---
DS: Admitting Diagnosis Discharge Date 01/28/22 Admitting Diagnosis Shortness of breath DS: Discharge Diagnosis Discharge Diagnosis (1) Pneumonia due to COVID-19 virus: Code(s): U07.1 - COVID-19; J12.82 - Pneumonia due to coronavirus disease 2018 Status: Acute Assessment and Plan: -continue with Decadron and remdesivir. -continue with albuterol -Robitussin p.r.n. -contact and droplet isolation 01/27: Does not appear to be improving much, no COPD medications at baseline, pulmonology consultation pending (2) Left leg DVT: Code(s): I82.402 - Acute embolism and thrombosis of unspecified deep veins of left lower extremity Status: Acute Assessment and Plan: Started on Eliquis today, likely secondary to history of smoking as well as COVID positive (3) Syncope: Qualifiers: Syncope type: unspecified Qualified Code(s): R55 - Syncope and collapse Code(s): R55 - Syncope and collapse Status: Acute Assessment and Plan: Appears resolved at this time, monitor For echo showed an EF of 65-70% with grade 1 diastolic dysfunction, moderate aortic valve sclerosis and no pulmonary hypertension noted (4) Hyponatremia: Code(s): E87.1 - Hypo-osmolality and hyponatremia Status: Acute Assessment and Plan: Improving, continue to monitor (5) Aortic aneurysm: Qualifiers: Abdominal aorta location: infrarenal aorta Aortic location: abdominal aorta Presence of rupture: without rupture Qualified Code(s): I71.43 - Infrarenal abdominal aortic aneurysm, without rupture Code(s): I71.9 - Aortic aneurysm of unspecified site, without rupture Status: Acute Assessment and Plan: Follow-up outpatient, stable (6) Type 2 diabetes mellitus without complications: Code(s): E11.9 - Type 2 diabetes mellitus without complications Status: Acute Assessment and Plan: A1c 5.7, continue Accu-Cheks and sliding scale, monitor, controlled (7) Hyperlipidemia: Code(s): E78.5 - Hyperlipidemia, unspecified Status: Acute Assessment and Plan: Continue Lipitor Plan DVT prophylaxis with Eliquis GI prophylaxis not indicated Code status full code DS: Summary Hospital Course Hospital Course: 68-year-old female with past medical history of syncope is presenting with shortness of breath. She also had some hyponatremia and her syncope was thought to be vasovagal from dehydration. She was found to be COVID positive. She was started on remdesivir and dexamethasone. Echo was ordered showing EF of 65-70% with grade 1 diastolic dysfunction moderate aortic valve sclerosis and no pulmonary hypertension. Pulmonology was consulted and recommended discontinue dexamethasone, continue remdesivir and follow-up outpatient in the pulmonology Clinic. While here, the patient developed some swelling and was found to have a DVT and started on Eliquis. Therefore, she was discharged on Eliquis. Time Spent with Patient Time attestation: Total time spent providing and/or coordinating discharge services: Exam Narrative: General: No acute distress, alert and oriented per baseline, stable on 3 L nasal cannula HEENT: Atraumatic, normocephalic, mucous membranes moist CV: Regular rate and rhythm, S1, S2 Lungs: Diminished throughout, scattered fine crackles noted Abdomen: Soft, nontender, nondistended Extremities: Normal to inspection Skin: No rashes noted, no lesions or wounds seen Psych: Euthymic, normal affect DS: Data Data Completed and Pending Labs on day of discharge: Labs from last 24 hours 01/28/22 01/28/22 01/28/22 12:00 08:10 05:26 WBC RBC Hgb Hct MCV MCH MCHC RDW Plt Count MPV Immature Gran % (Auto) Neut % (Auto) Lymph % (Auto) [place] % (Auto) Eos % (Auto) Baso % (Auto) Lymph # (Auto) [place] # (Auto) Eos # (Auto) Baso # (Auto) Abs Immat Gran (aut
--- NOTE | 2022-01-28 13:05 | PM.CNPUL ---
Assessment and Plan Assessment and plan (1) COVID-19: Code(s): U07.1 - COVID-19 Status: Acute Assessment and Plan: 76-year-old female, with history of smoking for many years admitted to the hospital after she passed out at home. Patient tested positive for COVID-[address] showed no infiltrates that would suggest COVID-19 pneumonia. Patient has evidence of emphysema on chest CT. She was also diagnosed with left DVT and has been on direct anticoagulant. No evidence of PE; cause of syncope unclear. Plan: Discontinue dexamethasone as patient has no evidence of COVID-19 pneumonia. there is no evidence of COPD exacerbation as well. I would continue with remdesivir for the time being. patient has evidence of emphysema on chest CT and will need further evaluation in the outpatient clinic in approximately 1 month from hospital discharge. I will also evaluate patient for home oxygen prior to discharge. Will sign off call with any questions. (2) Left leg DVT: Code(s): I82.402 - Acute embolism and thrombosis of unspecified deep veins of left lower extremity Status: Acute (3) Syncope: Qualifiers: Syncope type: unspecified Qualified Code(s): R55 - Syncope and collapse Code(s): R55 - Syncope and collapse Status: Acute (4) Aortic aneurysm: Qualifiers: Abdominal aorta location: infrarenal aorta Aortic location: abdominal aorta Presence of rupture: without rupture Qualified Code(s): I71.43 - Infrarenal abdominal aortic aneurysm, without rupture Code(s): I71.9 - Aortic aneurysm of unspecified site, without rupture Status: Acute History of Present Illness History of Present Illness Consult date: 01/28/22 Chief complaint: COVID 19 Pneumonia,Acute Respiratory Failure w/hyp Narrative: this 76-year-old female was admitted to the hospital 2 days ago after she passed out at home. The patient was in her usual state of health walk when she had an episode of syncope at home she felt weak and fell on the floor. When evaluated in the emergency room she was found to have no evidence of pulmonary embolism on the chest CT. The patient tested positive for COVID-19 infection. She has been on remdesivir and dexamethasone. she was also diagnosed with below-knee DVT for which she has been on a direct anticoagulant. currently she has no shortness of breath. She remains on room air. She has been a smoker for many years. She has cough with yellow sputum production. She also complains of some left chest pain which is worse with inspirations. She attributed this pain to her recent fall at home. past medical history is also significant for paroxysmal atrial fibrillation. she has some chronic abdominal bloating. Review of Systems Review of Systems: All system review is negative except as noted in HPI and below PMFSH Past Medical History Medical History (Updated 01/28/22 @ 13:11 by Marc Nevarez MD) Abnormal colonoscopy 07/24 Polyp Chronic obstructive pulmonary disease, unspecified DM2 (diabetes mellitus, type 2) Gastro-esophageal reflux disease without esophagitis Hyperlipidemia Mixed hyperlipidemia Nicotine dependence, cigarettes, with other nicotine-induced disorders Other chronic pain Paroxysmal atrial fibrillation Type 2 diabetes mellitus without complications Surgical History Surgical History H/O cervical discectomy (~1997) History of hysterectomy (~1972) Hx of cholecystectomy (~1989) Hx of tonsillectomy (~1948) Family History Family History Mother Breast cancer Sibling Breast cancer Heart disease Grandparent Carcinoma of colon Other Colon polyp Diabetes mellitus Social History Social History (Updated 01/26/22 @ 20:20 by Kelsie Lau NP) Social History: She continues to smoke 1ppd. family lives with her. Sh
[2022-01-30 19:20] LABS: Osmolality, Urine 287 mOsm/kg (50-1200)
== END 2022-01-28 14:50 | disposition home health service (06) ==
LOC: ANHED 16:42 → ANH3MEDSUR 20:39
PROVIDERS: Nurse Practitioner; Physician Assistant; Admitting Provider Internal Medicine; Emergency Provider Emergency Medicine; PCP Family Medicine Adolescent Medicine; Visit Provider Student in an Organized Health Care Education/Training Program
DX: U07.1 COVID-19 (principal); J12.82 Pneumonia due to coronavirus disease 2019; I82.402 Acute embolism and thrombosis of unspecified deep veins of left lower extremity; R55 Syncope and collapse; E87.1 Hypo-osmolality and hyponatremia; I71.43 Infrarenal abdominal aortic aneurysm, without rupture; E11.9 Type 2 diabetes mellitus without complications; E78.2 Mixed hyperlipidemia; E86.0 Dehydration; R10.13 Epigastric pain; R53.1 Weakness; R79.89 Other specified abnormal findings of blood chemistry; M47.814 Spondylosis without myelopathy or radiculopathy, thoracic region; M47.816 Spondylosis without myelopathy or radiculopathy, lumbar region; J44.9 Chronic obstructive pulmonary disease, unspecified; K21.9 Gastro-esophageal reflux disease without esophagitis; I48.0 Paroxysmal atrial fibrillation; R97.8 Other abnormal tumor markers; I45.4 Nonspecific intraventricular block; M19.012 Primary osteoarthritis, left shoulder; M19.011 Primary osteoarthritis, right shoulder; F17.210 Nicotine dependence, cigarettes, uncomplicated; Z79.51 Long term (current) use of inhaled steroids; Z79.84 Long term (current) use of oral hypoglycemic drugs; Z79.891 Long term (current) use of opiate analgesic; Z79.899 Other long term (current) drug therapy; Z83.3 Family history of diabetes mellitus
CPT/HCPCS: 36415; 70450; 71045; 71275; 72072; 72100; 74174; 80048; 80053; 80307; 81001; 82948; 83036; 83605; 83690; 83735; 83880; 83935; 84300; 84443; 84484; 85025; 85380; 85610; 85730; 87636; 93005; 93306; 93880; 93970; 96361; 96365; 96366; 96372; 96375; 96376; 99285; A9270; C9113; G0378; J0248; J1100; J1650; J7040; Q9967

== ENCOUNTER 2022-02-03 18:14 | Emergency (ER) | payer OTHER, MEDICARE, SELFPAY ==
[2022-02-03] VITALS (36 sets, daily range): BP systolic 63–162; BP diastolic 43–101; PULSE 0–120; RESP 0–20; TEMP 35.8; O2SAT 0–97
--- NOTE | ~2022-02-03 | CT_ITS ---
EXAMINATION: CT brain wo con DATE: 02/03/2022 18:34 INDICATION: ams . TECHNIQUE: Computed tomography (CT) of the head was performed without intravenous contrast. The mA wa s adjusted according to patient size. Iterative reconstruction technique was employed. The dose-lengt h product was 605.33 mGy-cm. COMPARISON: 01/26/2022. FINDINGS: Acute intraparenchymal hemorrhage in the right cerebellar hemisphere measuring 4.5 cm AP by 4.0 trans verse by 2.1 cm craniocaudad, with hemorrhagic extension into the contralateral cerebellar hemisphere , fourth ventricle, the bilateral occipital horns, along the tentorium and posterior falx, and with m oderate volume subarachnoid extension. Mild tonsillar herniation. [id number] midline shift of the cerebellar hemispheres. Superior transtentorial herniation. Compression of the brainstem which is hyp odense. Interval enlargement of the lateral and third ventricles. Unremarkable dural venous sinus attenuation. No acute osseous abnormality. The aerated spaces are clear. IMPRESSION: 4.5 cm acute right cerebellar] intraparenchymal hemorrhage with intraventricular, subdural, and subar achnoid extension, mass effect in the posterior fossa, mild herniation, and hydrocephalus. Hypodense slava and brainstem may reflect edema/infarction. Results reported telephonically to Dr. Tanner by Dr. Deleon at 6:42 PM on 01/26/2022. Reviewed, dictated and finalized at location K. SITE MANAGER IMPRESSION: 4.5 cm acute right cerebellar] intraparenchymal hemorrhage with intraventricula r, subdural, and subarachnoid extension, mass effect in the posterior fossa, mi ld herniation, and hydrocephalus. Hypodense slava and brainstem may reflect dany a/infarction. Results reported telephonically to Dr. Tanner by Dr. Deleon at 6:42 PM on 01/26.
--- NOTE | ~2022-02-03 | XR_ITS ---
EXAMINATION: XR chest 1V portable Exam Date/Time: 02/03/2022 18:40 TRAINS DISPATCHER SUPERVISOR HISTORY: ams, HX AFIB, HX COPD Comparison: 01/26/2022. CTPA 01/26/2022 RESULT: Lines, tubes, and devices: Partially visualized cervical fusion hardware. Lungs and pleura: Increased reticular opacities. Left lower lung scar/atelectasis. Senescent/emphyse matous change. Cardiomediastinal silhouette: Stable. Other: No acute osseous or upper abdominal finding. IMPRESSION: Mild interstitial edema. Reviewed, dictated and finalized at location K. NS DISPATCHER SUPERVISOR IMPRESSION: Mild interstitial edema.
--- NOTE | 2022-02-03 18:25 | ECG_ITS ---
Measurements Intervals [place] Rate: 107 P: 61 IA: 184 QRS: -13 QRSD: 133 T: 35 QT: 369 QTc: 494 Interpretive Statements SINUS TACHYCARDIA POSSIBLE LEFT ATRIAL ENLARGEMENT [-0.1mV P WAVE IN V1/V2] RIGHT BUNDLE BRANCH BLOCK COMPARED TO ECG 01/26/2022 13:52:18 SINUS TACHYCARDIA NOW PRESENT Electronically Signed On 02-04-2022 14:44:57 STACK CLERK by Arlene Arredondo M.D.
--- NOTE | 2022-02-03 18:27 | ED.AMS ---
HPI - Altered Mental Status General Chief Complaint: Altered Mental Status <Herlinda Joseph MD - Last Filed: 02/10/22 10:59> Stated Complaint: AMS <Herlinda Joseph MD - Last Filed: 02/10/22 10:59> Time Seen by Provider: 02/03/22 18:29 <Herlinda Joseph MD - Last Filed: 02/10/22 10:59> History of Present Illness HPI narrative: Patient is a 76-year-old female presenting with altered mental status. History is limited at this time due to unresponsiveness. According to EMS she was with family when she suddenly became unresponsive. For EMS, she was responding to painful stimuli and found to be bradycardic so she was given a dose of atropine with subsequent rate in the 100s. Patient currently responsive to painful stimuli but not verbal. Moving all extremities spontaneously. <Herlinda Joseph MD - Last Filed: 02/10/22 10:59> Related Data Home Medications: Home Medications Medication Instructions Recorded Confirmed aspirin 81 mg tablet 81 mg PO DAILY 01/26/22 01/26/22 <Herlinda Joseph MD - Last Filed: 02/10/22 10:59> Allergies/Adverse Reactions: Allergies Allergy/AdvReac Type Severity Reaction Status Date / Time diclofenac AdvReac Unknown GI upset Verified 04/14/21 12:04 levofloxacin [From Levaquin] AdvReac Unknown nausea, Verified 04/14/21 12:04 mouth sores codeine AdvReac Nausea and Verified 01/26/22 14:11 Vomiting <Herlinda Joseph MD - Last Filed: 02/10/22 10:59> Review of Systems Review of Systems: All systems reviewed & are unremarkable except as noted in HPI and below <Herlinda Joseph MD - Last Filed: 02/10/22 10:59> [facility] Past Medical History Medical History: Medical History Abnormal colonoscopy 07/24 Polyp Chronic obstructive pulmonary disease, unspecified DM2 (diabetes mellitus, type 2) Gastro-esophageal reflux disease without esophagitis Hyperlipidemia Mixed hyperlipidemia Nicotine dependence, cigarettes, with other nicotine-induced disorders Other chronic pain Paroxysmal atrial fibrillation Type 2 diabetes mellitus without complications <Herlinda Joseph MD - Last Filed: 02/10/22 10:59> Surgical History Surgical History: Surgical History H/O cervical discectomy (~1997) History of hysterectomy (~1972) Hx of cholecystectomy (~1989) Hx of tonsillectomy (~194) <Herlinda Joseph MD - Last Filed: 02/10/22 10:59> Family History Family History: Family History Mother Breast cancer Sibling Breast cancer Heart disease Grandparent Carcinoma of colon Other Colon polyp Diabetes mellitus <Herlinda Joseph MD - Last Filed: 02/10/22 10:59> Social History Social History: Social History Social History: She continues to smoke 1ppd. family lives with her. She is and diabled. She is a current smoker. She denies any alcohol or marijuana. Code status full code Smoking packs per day: 1.5 Smoking cigarettes per day: 30.0 Years smoked: 60 Smoking pack-years: 90.00 Smoking status: Current every day smoker Tobacco type: cigarettes Second hand tobacco smoke exposure: Yes Alcohol intake: never Substance use: never Substance use type: does not use Lack of Transportation: No Lack of Food: Sometimes True Current Housing: I Have Housing Concerned About Future Housing: No Difficulty Paying Gas/Electric Bills: No Difficulty Paying for Meds: No Currently Unemployed: No Education: High School Diploma/GED Difficulty w/ Childcare or Family Care: No Gender identity (if verbalized by the patient): Female Sexual Orientation (if Verbalized by the Patient): Straight or Heterosexual Spiritual care concerns: No Agree to blood products:
[2022-02-03 18:42] LABS: Basophils Percent Auto 0.2 % (0.2-1.2); Eosinophils Absolute Auto 0.1 K/mm3 (0-0.3); Eosinophils Percent Auto 0.7 % (0-4.4); Hematocrit 48.3 % (37.0-47.0); Hemoglobin 16.3 g/dL (12.0-15.0); Immature Granulocyte Absolute 0.17 K/mm3 (0.00-0.031); Lymphocytes Absolute Auto 6.54 K/mm3 (0.9-3.2); Lymphocytes Percent Auto 39.6 % (18.3-44.2); Mean Corpuscular HGB Conc 33.7 g/dl (32-36); Mean Corpuscular Volume 94.7 fl (80-100); Monocytes Absolute Auto 1.1 K/mm3 (0.1-0.6); Monocytes Percent Auto 6.5 % (2.6-8.5); Neutrophils Absolute Auto 8.6 K/mm3 (1.3-6.7); Platelet Count Result 403 k/mm3 (150-375); Red Cell Distribution Width 12.9 % (11.5-14.5); White Blood Count 16.5 K/mm3 (4.5-10.0)
[2022-02-03 18:44] LABS: Ethanol < 10 mg/dL (<10); Lactic Acid Reflex 1.5 mmol/L (0.7-2.0)
[2022-02-03 18:54] LABS: INR 1.1; Partial Thromboplastin Time 23.3 SECONDS (22.3-36.8); Prothrombin Time 14.2 Seconds (11.1-14.7)
[2022-02-03 18:58] LABS: Atypical Lymphocytes Present; Platelet Estimate Increased (Adequate); Smudge Cells FEW
[2022-02-03] MEDS: SODIUM CHLORIDE 0.9% IV 1,000 ML 999 ML IV CONT (18:58)
[2022-02-03 18:59] LABS: Schistocytes None Seen (NORMAL)
--- NOTE | 2022-02-03 19:10 | PC.NURSE ---
PER FAMILY REQUEST [facility] CONTACTED FOR CONSULT AT [phone].
[2022-02-03 19:25] LABS: Alanine Aminotransferase 16 U/L (6-35); Alkaline Phosphatase 76 U/L (38-126); Anion Gap 7 mmol/L (8-16); Aspartate Amino Transferase 23 U/L (14-36); Bilirubin,Total 0.6 mg/dL (0.2-1.3); Blood Urea Nitrogen 21 mg/dL (7-17); Calcium 9.7 mg/dL (8.4-10.2); Carbon Dioxide 29 mmol/L (22-30); Chloride 96 mmol/L (98-107); Estimated CRCL calculation 67 ml/min; Estimated Glomerular Filt Rate > 60; Glucose 161 mg/dL (65-110); Sodium 132 mmol/L (137-145)
[2022-02-03 19:36] LABS: Troponin I < 0.012 ng/mL (0.000-0.034)
[2022-02-03 19:36] LABS: Influenza A QL RT-PCR Negative (Negative); Influenza B QL RT-PCR Negative (Negative); SARS-CoV-2 RNA PCR Positive
[2022-02-03 19:48] LABS: Add Urine Microscopic? YES; Appearance Urine Clear (Clear); Bilirubin Urine Negative (Negative); Blood Urine Negative (Negative); Color Urine Light Yellow (Yellow); Glucose Urine UA 1+ mg/dL (Negative); Ketones Urine Negative (Negative); Leukocyte Esterase Ur Negative LEU/UL (Negative); Nitrate Urine Negative (Negative); Protein Urine Negative (Negative); Specific Grav Ur 1.015 (1.001-1.035); Urobilinogen Urine 0.2 mg/dL (<2.0); pH Urine 7.5 (5.0-9.0)
[2022-02-03 19:59] LABS: Amphetamine Screen Urine Negative (Negative); Barbiturate Screen Urine Negative (Negative); Benzodiazepines Screen Urine Negative (Negative); Cannabinoid Screen Urine Negative (Negative); Cocaine Screen Urine Negative (Negative); Methadone Screen Urine Negative (Negative); Opiate Screen Urine Negative (Negative); Phencyclidine Screen Urine Negative (Negative)
[2022-02-03 20:00] LABS: Amorphous Sediment Urine Few; RBC Urine 0-2 /hpf (0-2); WBC Urine 0-3 /hpf
--- NOTE | 2022-02-03 22:30 | PC.NURSE ---
Hospice Nurse at bedside at this time speaking with family.
--- NOTE | 2022-02-03 22:44 | PC.NURSE ---
pollack bag drained at 2242, got 1800ml of urine out
--- NOTE | 2022-02-04 | PC.NURSE ---
Called [facility] at this time. Edilberto number of 02/03/[phone], spoke with CRISTINA. Gave [facility] info of next of kin, Olena Tolbert, and [phone].
--- NOTE | 2022-02-04 01:08 | PC.NURSE ---
Carly with [facility] called and updated that pt is no longer a candidate for donation at this time.
--- NOTE | 2022-02-04 01:53 | PC.NURSE ---
home here to waste picker pt at this time. [facility] all drains, tubes, and lines removed prior.
== END 2022-02-04 01:54 | disposition expired ==
PROVIDERS: Emergency Medicine; Emergency Provider Emergency Medicine; PCP Family Medicine Adolescent Medicine
DX: I62.9 Nontraumatic intracranial hemorrhage, unspecified (principal); U07.1 COVID-19; J44.9 Chronic obstructive pulmonary disease, unspecified; I48.0 Paroxysmal atrial fibrillation; E11.9 Type 2 diabetes mellitus without complications; E78.2 Mixed hyperlipidemia; K21.9 Gastro-esophageal reflux disease without esophagitis; Z90.710 Acquired absence of both cervix and uterus; F17.210 Nicotine dependence, cigarettes, uncomplicated; Z79.899 Other long term (current) drug therapy; Z79.01 Long term (current) use of anticoagulants; Z79.84 Long term (current) use of oral hypoglycemic drugs; Z79.82 Long term (current) use of aspirin; R00.0 Tachycardia, unspecified; R94.31 Abnormal electrocardiogram [ECG] [EKG]; I45.10 Unspecified right bundle-branch block
CPT/HCPCS: 36415; 51702; 70450; 71045; 80053; 80307; 81001; 83605; 84484; 85025; 85610; 85730; 87636; 93005; 96360; 96361; 99291; J7030